=== PATIENT | male | born 1970 | race Two or more races ===

== ENCOUNTER 2022-03-10 21:47 | Emergency (ER) | payer MEDICAID ==
[~2022-03-10] VITALS: Ht 165.1 cm; Wt 68.0 kg
[2022-03-10 22:37] VITALS: BP 118/84
== END 2022-03-11 02:22 | disposition left against medical advice (07) ==
LOC: ER 21:47
DX: Z53.21 Procedure and treatment not carried out due to patient leaving prior to being seen by health care provider (principal)
CPT/HCPCS: 99281

== ENCOUNTER 2025-04-10 13:42 | Emergency (ER) | payer MEDICAID ==
[~2025-04-10] VITALS: Ht 170.2 cm; Wt 80.0 kg
[2025-04-10 13:44] VITALS: BP 146/82; PULSE 113; RESP 22; TEMP 36.6; O2SAT 99
== END 2025-04-10 13:59 | disposition home or self-care (01) ==
LOC: ER 13:42
DX: R41.82 Altered mental status, unspecified (principal); F41.9 Anxiety disorder, unspecified
CPT/HCPCS: 99283